=== PATIENT | male | born 1985 | race Two or more races ===

== ENCOUNTER 2022-10-13 18:07 | Emergency (ER) | payer SELFPAY ==
[~2022-10-13] VITALS: Ht 177.8 cm; Wt 114.2 kg
[2022-10-13 18:30] VITALS: BP 126/81
== END 2022-10-13 21:15 | disposition home or self-care (01) ==
LOC: ER 18:07
DX: S61.431D Puncture wound without foreign body of right hand, subsequent encounter (principal); Z98.890 Other specified postprocedural states; X58.XXXD Exposure to other specified factors, subsequent encounter

== ENCOUNTER 2022-10-25 02:26 | Emergency (ER) | payer SELFPAY ==
[~2022-10-25] VITALS: Ht 175.3 cm; Wt 100.0 kg
[2022-10-25 03:14] LABS: Basophils # (auto) 0.2 10 ^3/uL (0-0.2); Basophils % (auto) 1.2 % (0.0-2.0); Eosinophils # (auto) 0.4 10 ^3/uL (0-0.8); Eosinophils % (auto) 2.9 % (0.0-7.0); Hematocrit 44.6 % (41.0-53.0); Hemoglobin 15.5 g/dL (13.5-17.5); Lymphocytes # (auto) 2.6 10 ^3/uL (0.4-5.4); Mean Corpuscular Hemoglobin 30.5 pg (28.0-32.0); Mean Corpuscular Hgb Conc. 34.7 g/dL (32.0-36.0); Mean Corpuscular Volume 87.9 fL (80.0-100.0); Monocytes # (auto) 0.7 10 ^3/uL (0-1.3); Monocytes % (auto) 5.7 % (0.0-12.0); Neutrophils # (auto) 8.4 10 ^3/uL (1.6-8.6); Neutrophils % (auto) 69.2 % (37.0-80.0); Nucleated Red Blood Cells % 0.1 %; Red Blood Cells 5.07 10^6/uL (4.5-5.90); Red Cell Distribution Width 13.8 % (11.8-14.3); White Blood Cell 12.2 10^3/uL (4.4-10.8)
[2022-10-25 03:26] LABS: INR 0.92 (0.9-1.15); Partial Thromboplastin Time 31.9 sec (24.6-33.4)
[2022-10-25 03:28] LABS: Albumin 3.3 g/dL (3.4-5.0); BUN/Creatinine Ratio 28.9 (10.0-20.0); Calcium 8.8 mg/dL (8.5-10.1); Potassium 4.1 mmol/L (3.5-5.1)
[2022-10-25 03:31] LABS: Bilirubin, Total 0.2 mg/dL (0.2-1.0); Total Protein 7.4 g/dL (6.4-8.2)
[2022-10-25 07:00] VITALS: BP 151/81
== END 2022-10-25 07:05 | disposition home or self-care (01) ==
LOC: ER 02:26
DX: R07.89 Other chest pain (principal); E86.0 Dehydration; F41.9 Anxiety disorder, unspecified; R73.9 Hyperglycemia, unspecified; E88.09 Other disorders of plasma-protein metabolism, not elsewhere classified
CPT/HCPCS: 36415; 71045; 80053; 83880; 84484; 85025; 85610; 85730; 93005